=== PATIENT | male | born 1970 | race Caucasian/White ===

== ENCOUNTER → 2019-05-27 | Outpatient (CLI) | payer SELFPAY ==
--- NOTE | 2019-05-27 14:35 | MRI_ITS ---
STUDY: MRI CERVICAL SPINE WITH AND WITHOUT CONTRAST REASON FOR EXAM: Male, 48 years old. Multiple sclerosis and right shoulder pain TECHNIQUE: Standardized fat and water weighted pulse sequences were obtained in the sagittal and axial following administration of 20 IV Dotarem. COMPARISON: None FINDINGS: Normal foramen magnum and brainstem-cervical cord junction. Normal craniovertebral junction. Normal anterior atlantoaxial articulation. Normal odontoid process. Normal cervical lordosis. Normal vertebral bodies and posterior osseous elements. C2-3: Normal endplates. Normal disc height, signal and morphology. Normal central canal and intervertebral neural foramina. C3-4: Normal endplates. Normal disc height, signal and morphology. Normal central canal and intervertebral neural foramina. C4-5: Normal endplates. Normal disc height, signal and morphology. Normal central canal and intervertebral neural foramina. C5-6: Normal endplates. Normal disc height, signal and morphology. Normal central canal and intervertebral neural foramina. Anterior plate and screws. C6-7: Normal endplates. Normal disc height, signal and morphology. Normal central canal and intervertebral neural foramina. C7-T1: Normal endplates. Normal disc height, signal and morphology. Normal central canal and intervertebral neural foramina. Normal cervical cord. Normal visualized soft tissue structures. MRI/Spine Cervical W/WO Contrast IMPRESSION: Anterior cervical disc fusion C5-6. No acute disease. Electronically Signed: Jairo Cano MD at 17:11 EDT , Service support ,
--- NOTE | 2019-05-27 14:35 | MRI_ITS ---
STUDY: MRI THORACIC SPINE WITH AND WITHOUT CONTRAST REASON FOR EXAM: Male, 48 years old. Right shoulder pain and history of Multiple sclerosis TECHNIQUE: 20 IV Dotarem was administered for the contrast portion of the examination. COMPARISON: None. FINDINGS: Normal kyphosis of the thoracic spine. There is no substantial scoliosis. Moderate right paracentral posterior disc marginal osteophyte at T9-10. Small posterior disc marginal aspect at T6-7. Moderate central posterior disc marginal osteophyte at t5-6. Small posterior disc marginal osteophyte at t4-5. T1-2, T2-3, T3-4, T4-5, T5-6, T6-7, T7-8, T8-9, T9-10, T10-11, T11-12: Normal endplates. Normal disc hydration, heights and morphology of the corresponding intervertebral discs. Normal central canal and intervertebral neural foramina at the corresponding levels. Normal visualized thoracic cord. Normal conus medullaris that terminates at the lumbar level. The soft tissue structures are unremarkable. There is no enhancing abnormality. MRI/Spine Thoracic W/WO Contrast IMPRESSION: Multiple disc marginal osteophytes as noted above. No definite demyelinating plaques. Electronically Signed: Jairo Cano MD at 16:54 EDT , Service support ,
== END | disposition home or self-care (01) ==
DX: G95.9 Disease of spinal cord, unspecified (principal); R20.9 Unspecified disturbances of skin sensation
CPT/HCPCS: 72156; 72157; A9575

== ENCOUNTER → 2022-04-14 | Outpatient (CLI) | payer SELFPAY, OTHER ==
--- NOTE | 2022-04-14 12:43 | MRI_ITS ---
EXAM: MR CERVICAL SPINE WITHOUT AND WITH INTRAVENOUS CONTRAST CLINICAL INDICATION: MS TECHNIQUE: Multiplanar and multisequence MR images of the cervical spine without and with intravenous contrast were performed. This report was created using [employer] report [employer] technology. CONTRAST: IV 20 cc dotarem COMPARISON: MR Cervical Spine dated 05/27/2019 FINDINGS: VERTEBRAE: Unremarkable. Normal vertebral bodies and posterior elements. Normal alignment. Normal craniocervical junction and cervicothoracic junction. No spondylolisthesis. There is preservation of the normal cervical lordosis. SPINAL CORD: Unremarkable in signal and morphology. No abnormal contrast enhancement. SOFT TISSUES: Unremarkable. No prevertebral soft tissue swelling. LYMPH NODES: Unremarkable. There is no cervical adenopathy. DISCS/SPINAL CANAL/NEURAL FORAMINA: C2-C3: Unremarkable. Normal disc height and morphology. Normal spinal canal. Normal neuroforamina. C3-C4: Unremarkable. Normal disc height and morphology. Normal spinal canal. Normal neuroforamina. C4-C5: Unremarkable. Normal disc height and morphology. Normal spinal canal. Normal neuroforamina. C5-6: Disc implant with anterior fusion again noted. Small annular fissure again seen no disc herniation or neural foraminal narrowing. Normal spinal canal. C6-C7: Unremarkable. Normal disc height and morphology. Normal spinal canal. Normal neuroforamina. C7-T1: Unremarkable. Normal disc height and morphology. Normal spinal canal. Normal neuroforamina. MRI/Spine Cervical W/WO Contrast IMPRESSION: 1. No acute abnormality. 2. Stable C5-6 anterior fusion. 3. Normal cervical cord. Electronically Signed: Uche Jean MD at 15:35 EDT ,
--- NOTE | 2022-04-14 12:43 | MRI_ITS ---
EXAM: MR HEAD WITHOUT AND WITH INTRAVENOUS CONTRAST CLINICAL INDICATION: MS TECHNIQUE: Multiplanar and multisequence MR images of the brain were obtained without and with intravenous contrast. This report was created using [employer] report generation technology. CONTRAST: 20 cc Dotarem COMPARISON: None. FINDINGS: BRAIN AND EXTRA-AXIAL SPACES: Unremarkable. No intra- or extra-axial hemorrhage. No evidence of acute infarct. No intracranial mass or mass effect. There is preservation of the dorman/white matter interface. Posterior fossa structures are unremarkable. Ventricles are appropriate for age. No hydrocephalus. Basal cisterns are patent. No abnormal contrast enhancement. SELLA: Unremarkable. Normal sella turcica, pituitary gland, infundibular stalk, optic chiasm and hypothalamus. AUDITORY SYSTEM: Unremarkable. The internal auditory canals are patent. BONES/JOINTS: Unremarkable. No discrete lytic or blastic abnormalities. SINUSES: Unremarkable as visualized. Clear. MASTOID AIR CELLS: Unremarkable as visualized. Clear. ORBITS: Unremarkable as visualized. Both globes, extraocular muscles, optic nerves and retrobulbar fat appear unremarkable. VASCULATURE: Unremarkable as visualized. Normal flow voids in the major intracranial circulation. MRI/Brain W/WO Contrast IMPRESSION: Negative MRI brain without and with intravenous contrast. Electronically Signed: Uche Jean MD at 15:45 EDT ,
== END | disposition home or self-care (01) ==
DX: G37.9 Demyelinating disease of central nervous system, unspecified (principal)
CPT/HCPCS: 70553; 72156; A9575

== ENCOUNTER → 2025-06-09 | Outpatient (CLI) | payer OTHER, SELFPAY ==
--- NOTE | 2025-06-08 11:30 | ETH_PTH ---
PAT[facility]: [facility]ENG [facility]LEY [id number] AGE/SX: 54/M ROOM: RE06/09/[address]: Dr. Jairo Blanton MD : 1970 BED: DIS: 06/09/2025 SPEC #: [id number] RECD: 06/09/25 15:45 STATUS: KOFI REYoana #: [id number] JE: 06/08/25 11:[address]: Jairo Blanton DEPT: SURGICAL PATHOLOGY RECD BY: Joaquin Rader ENTERED: 06/10/25 10:48 SP TYPE: ETH TISS OTHR DR: No Primary Care Phys Tissues: A - Ethmoid sinus, NOS B - Ethmoid sinus, NOS Procedures: Decalcification bone/plaque Surgery Specimen Level IV HEADER OPERATION: Functional endoscopic sinus surgery, maxillary antrostomy PRE-OP DIAGNOSIS: Nasal congestion, hypertrophy of nasal turbinates, other chronic sinusitis TISSUE SUBMITTED: A- Left sinus, B- Right sinus MICROSCOPIC DIAGNOSIS A. Sinus, left, functional endoscopic sinus surgery: Sinonasal mucosa with moderate acute and chronic inflammation. Fragment of unremarkable bone. B. Sinus, right, functional endoscopic sinus surgery: Sinonasal mucosa with moderate acute and chronic inflammation, fragment of polyp. Few fragments of unremarkable bone. MICROSCOPIC DESCRIPTION Slides are reviewed. GROSS DESCRIPTION Received in 2 formalin containers labeled with the patient's name and date of . Designated as: A. Left sinus content is a 2.3 x 1.4 x 0.2 cm aggregate of cooper tissue fragments and flecks of apparent bone. Entirely submitted in 1 cassette, following decalcification. B. Right sinus content is a 2.0 x 1.3 x 0.2 cm aggregate of cooper tissue fragments and flecks of apparent bone. Entirely submitted in 1 cassette, following decalcification. WA 06/10/2025 CPT:[id number]
== END | disposition home or self-care (01) ==
LOC: LABSPEC 15:29
PROVIDERS: Referring Provider Otolaryngology; Visit Provider Otolaryngology
DX: R09.81 Nasal congestion (principal); J34.3 Hypertrophy of nasal turbinates; J32.9 Chronic sinusitis, unspecified
CPT/HCPCS: 88305; 88311

== ENCOUNTER → 2025-07-15 | Outpatient (CLI) | payer OTHER, SELFPAY ==
[2025-07-17 19:08] LABS: IgG, Quant 673 mg/dL (603-1613); Immunoglobulin G, Subclass 1 366 mg/dL (248-810); Immunoglobulin G, Subclass 2 204 mg/dL (130-555); Immunoglobulin G, Subclass 3 18 mg/dL (15-102); Immunoglobulin G, Subclass 4 8 mg/dL (2-96)
== END | disposition home or self-care (01) ==
LOC: LAB 16:48
PROVIDERS: Referring Provider Otolaryngology; Visit Provider Otolaryngology
DX: J32.9 Chronic sinusitis, unspecified (principal)
CPT/HCPCS: 36415; 82784; 82787

== ENCOUNTER → 2025-08-19 | Outpatient (CLI) | payer OTHER, SELFPAY | END | disposition home or self-care (01) | LOC: LABSPEC 15:54 | PROVIDERS: Referring Provider Otolaryngology; Visit Provider Otolaryngology | DX: J32.9 Chronic sinusitis, unspecified (principal) | CPT/HCPCS: 87070; 87077; 87186; 87205 ==